=== PATIENT | male | born 1995 | race Caucasian/White ===

== ENCOUNTER 2017-09-17 17:24 | Emergency (ER) | payer OTHER ==
[~2017-09-17] VITALS: Ht 165.1 cm; Wt 62.4 kg
[2017-09-17] MEDS ORDERED: AMOXICILLIN500 MG PO (17:54)
[2017-09-17 17:58] VITALS: BP 118/68
[2017-09-17] MEDS ORDERED: NEOSPORIN28 GM EX (18:03)
== END 2017-09-17 18:07 | disposition home or self-care (01) ==
LOC: ED 17:24
DX: L01.00 Impetigo, unspecified (principal)